=== PATIENT | male | born 1985 | race Hispanic/Latino ===

== ENCOUNTER 2023-10-09 09:10 | Emergency (ER) | payer BC, OTHER ==
[~2023-10-09] VITALS: Ht 177.8 cm; Wt 68.0 kg
[2023-10-09] MEDS ORDERED: SOLU-MEDROL 125MG VIAL IVP ONE (10:00)
[2023-10-09] MEDS ORDERED: 0.9%NACL 1000ML 1,000 ML IV ONE (10:00)
[2023-10-09] MEDS ORDERED: FAMOTIDINE 20MG VIAL IV ONE (10:00)
[2023-10-09] MEDS ORDERED: DiphenhydrAMINE HCL 50 MG/ML VIAL IV ONE (10:00)
[2023-10-09] MEDS ORDERED: KETOROLAC 15MG/ML VIAL (15MG/ML) IV ONE (10:00)
[2023-10-09] MEDS ORDERED: LIDOCAINE HCL 2% VISCOUS 15 ML UDCUP PO ONE (10:00)
[2023-10-09 10:16] LABS: BASOPHILS # (AUTO) 0.01 K/uL (0.00-0.20); BASOPHILS % (AUTO) 0.1 % (0.0-5.0); EOSINOPHILS # (AUTO) 0.06 K/uL (0.00-0.70); EOSINOPHILS % (AUTO) 0.6 % (0.0-8.0); HEMATOCRIT 36.2 % (42-54); IMMATURE GRANULOCYTE ABSOLUTE 0.06 K/uL (0-1); LYMPHOCYTES % (AUTO) 9.9 % (21.0-51.0); MEAN CORPUSCULAR HGB CONC 36.2 g/dL (32.0-36.0); MEAN CORPUSCULAR VOLUME 121.5 fL (79-99); MONOCYTES # (AUTO) 0.5 K/uL (0.1-1.0); MONOCYTES % (AUTO) 4.8 % (3.0-13.0); NEUTROPHILS # (AUTO) 8.8 K/uL (1.8-7.7); PLATELET COUNT (AUTO) 210 K/uL (130-400); RED BLOOD CELL COUNT(AUTO) 2.98 MIL/uL (4.50-6.20); RED CELL DISTRIBUTION WIDTH 11.4 % (11.0-15.5); WHITE BLOOD COUNT (AUTO) 10.4 K/uL (4.8-10.8)
[2023-10-09 10:41] LABS: CREATININE 0.8 mg/dL (0.5-1.5); POTASSIUM 3.5 mmol/L (3.5-5.1)
[2023-10-09 10:46] LABS: ALBUMIN 3.8 g/dL (3.5-5.0); BILIRUBIN,TOTAL 1.2 mg/dL (0.2-1.0); TOTAL PROTEIN, SERUM 7.5 g/dL (6.0-8.3)
[2023-10-09] MEDS ORDERED: IOHEXOL-350 75 ML VIAL IV ONE (11:14)
[2023-10-09 12:06] LABS: LYMPHOCYTES % (MANUAL) 11 % (22-44); MAN.DIFF COMMENT-IMPRESSION MANUAL DIFFERENTIAL; MONOCYTES % (MANUAL) 6 % (2-9); PLATELET MORPHOLOGY COMMENT ADEQUATE; SEGMENTED NEUTROPHILS % 83 % (40-70); TOTAL CELLS COUNTED 100
[2023-10-09] MEDS ORDERED: VALA10002 PO (12:47)
[2023-10-09] MEDS ORDERED: [UNRECOGNIZED DRUG - CODE] TP (12:47)
[2023-10-09] MEDS ORDERED: VALACYCLOVIR HCL 500 MG TABLET ONE (12:49)
[2023-10-09 12:51] VITALS: BP 120/84; PULSE 74; RESP 18; O2SAT 98
[2023-10-09] MEDS ORDERED: VALACYCLOVIR HCL 500 MG TABLET PO SCH (13:00)
== END 2023-10-09 12:51 | disposition home or self-care (01) ==
LOC: EDH 09:10
DX: K05.10 Chronic gingivitis, plaque induced (principal); K14.0 Glossitis; J02.9 Acute pharyngitis, unspecified
CPT/HCPCS: 99284; 96374; 70491; 96375; 96361; 80053; 85025; 87071; 87880; 87252; 36415; J1200; J3490; J7030; J2930; J1885; Q9967

== ENCOUNTER 2023-11-10 18:21 | Emergency (ER) | payer BC ==
[~2023-11-10] VITALS: Ht 177.8 cm; Wt 68.0 kg
[~2023-11-10 18:21] MED LIST: VALA10002 PO; [UNRECOGNIZED DRUG - CODE] TP
[2023-11-10 18:23] VITALS: BP 132/61; PULSE 114; RESP 20
[2023-11-10 18:45] LABS: HEMATOCRIT 35.9 % (42-54); MEAN CORPUSCULAR HEMOGLOBIN 43.5 pg (27.0-33.0); MEAN CORPUSCULAR HGB CONC 36.5 g/dL (32.0-36.0); MEAN CORPUSCULAR VOLUME 119.3 fL (79-99); PLATELET COUNT (AUTO) 213 K/uL (130-400); RED BLOOD CELL COUNT(AUTO) 3.01 MIL/uL (4.50-6.20); RED CELL DISTRIBUTION WIDTH 11.9 % (11.0-15.5); WHITE BLOOD COUNT (AUTO) 10.7 K/uL (4.8-10.8)
[2023-11-10 18:48] LABS: APPEARANCE,URINE CLEAR (CLEAR); BILIRUBIN,URINE NEGATIVE (NEGATIVE); COLOR,URINE YELLOW (YELLOW); GLUCOSE, URINE (UA) NEGATIVE (NEGATIVE); KETONES,URINE 20 mg/dL (NEGATIVE); LEUKOCYTE ESTERASE ,URINE 25 Leu/uL (NEGATIVE); NITRATE,URINE NEGATIVE (NEGATIVE); OCCULT BLOOD,URINE SMALL (NEGATIVE); PH,URINE 5.5 (5.0-8.0); PROTEIN,URINE 30 mg/dL (NEGATIVE); UROBILINOGEN,URINE 3 mg/dL (0.2-1.0)
[2023-11-10 18:51] LABS: ADD UA MICROSCOPIC YES
[2023-11-10 18:52] LABS: BACTERIA,URINE FEW /HPF (None Seen); MUCUS,URINE MANY LPF (None Seen); SQUAMOUS EPITHELIAL CELL,UR RARE /HPF (0-2)
[2023-11-10 18:55] LABS: CREATININE 0.9 mg/dL (0.5-1.5); POTASSIUM 3.3 mmol/L (3.5-5.1)
[2023-11-10 19:00] LABS: ALBUMIN 4.1 g/dL (3.5-5.0); BILIRUBIN,TOTAL 2.2 mg/dL (0.2-1.0); TOTAL PROTEIN, SERUM 7.9 g/dL (6.0-8.3)
== END 2023-11-10 20:59 | disposition left against medical advice (07) ==
LOC: EDH 18:21
DX: R11.2 Nausea with vomiting, unspecified (principal); R19.7 Diarrhea, unspecified; Z53.21 Procedure and treatment not carried out due to patient leaving prior to being seen by health care provider
CPT/HCPCS: 36415; 80053; 81001; 85027

== ENCOUNTER 2023-11-13 13:33 | Emergency (ER) | payer BC ==
[~2023-11-13] VITALS: Ht 175.3 cm; Wt 68.0 kg
[2023-11-13 14:52] LABS: BASOPHILS # (AUTO) 0.01 K/uL (0.00-0.20); BASOPHILS % (AUTO) 0.2 % (0.0-5.0); EOSINOPHILS # (AUTO) 0.21 K/uL (0.00-0.70); EOSINOPHILS % (AUTO) 5.1 % (0.0-8.0); HEMATOCRIT 37.1 % (42-54); IMMATURE GRANULOCYTE ABSOLUTE 0.01 K/uL (0-1); LYMPHOCYTES # (AUTO) 1.2 K/uL (1.0-4.8); LYMPHOCYTES % (AUTO) 28.7 % (21.0-51.0); MEAN CORPUSCULAR HEMOGLOBIN 42.8 pg (27.0-33.0); MEAN CORPUSCULAR HGB CONC 36.7 g/dL (32.0-36.0); MEAN CORPUSCULAR VOLUME 116.7 fL (79-99); MONOCYTES # (AUTO) 0.3 K/uL (0.1-1.0); MONOCYTES % (AUTO) 7.2 % (3.0-13.0); NEUTROPHILS # (AUTO) 2.4 K/uL (1.8-7.7); NEUTROPHILS % (AUTO) 58.6 % (40.0-77.0); PLATELET COUNT (AUTO) 215 K/uL (130-400); RED BLOOD CELL COUNT(AUTO) 3.18 MIL/uL (4.50-6.20); RED CELL DISTRIBUTION WIDTH 12.3 % (11.0-15.5); WHITE BLOOD COUNT (AUTO) 4.1 K/uL (4.8-10.8)
[2023-11-13] MEDS ORDERED: ONDANSETRON 4MG INJ IVP ONE (15:00)
[2023-11-13] MEDS ORDERED: PANTOPRAZOLE 40 MG/VIAL IVP ONE (15:00)
[2023-11-13] MEDS ORDERED: LACTATED RINGERS 1000ML 1,000 ML IV ONE (15:00)
[2023-11-13 15:57] LABS: INFLUENZA TYPE A Negative For Type A (NEGATIVE); INFLUENZA TYPE B Negative For Type B (NEGATIVE)
[2023-11-13 16:08] LABS: ALBUMIN 3.7 g/dL (3.5-5.0); BILIRUBIN,TOTAL 0.9 mg/dL (0.2-1.0); CREATININE 0.7 mg/dL (0.5-1.5); POTASSIUM 3.3 mmol/L (3.5-5.1); TOTAL PROTEIN, SERUM 7.5 g/dL (6.0-8.3)
[2023-11-13 16:26] LABS: APPEARANCE,URINE CLEAR (CLEAR); BILIRUBIN,URINE NEGATIVE (NEGATIVE); COLOR,URINE COLORLESS (YELLOW); GLUCOSE, URINE (UA) NEGATIVE (NEGATIVE); KETONES,URINE NEGATIVE (NEGATIVE); LEUKOCYTE ESTERASE ,URINE NEGATIVE Leu/uL (NEGATIVE); NITRATE,URINE NEGATIVE (NEGATIVE); OCCULT BLOOD,URINE NEGATIVE (NEGATIVE); PROTEIN,URINE NEGATIVE (NEGATIVE); UROBILINOGEN,URINE 0.2 mg/dL (0.2-1.0)
[2023-11-13 16:31] LABS: ADD UA MICROSCOPIC NO
[2023-11-13] MEDS ORDERED: KCL 20 MEQ ERTAB PO ONE (17:00)
[2023-11-13] MEDS ORDERED: MORPHINE 2 MG SYG IVP ONE (17:30)
[2023-11-13 18:07] VITALS: BP 128/84; PULSE 82; RESP 18; O2SAT 99
[2023-11-13] MEDS ORDERED: ONDA4TAB10 PO (18:12)
[2023-11-13] MEDS ORDERED: ONDANSETRON 4MG TABLET PO ONE (18:30)
== END 2023-11-13 18:25 | disposition home or self-care (01) ==
LOC: EDH 13:33
DX: K52.9 Noninfective gastroenteritis and colitis, unspecified (principal); E87.6 Hypokalemia; R11.2 Nausea with vomiting, unspecified; E86.0 Dehydration; R79.89 Other specified abnormal findings of blood chemistry
CPT/HCPCS: 99284; 96374; 96375; 96361; 82550; 80053; 83690; 85025; 87804 ×2; 81003; 36415; 93005; Q0162; J7120; J2270; J2405; C9113

== ENCOUNTER 2024-08-18 14:49 | Emergency (ER) | payer BC ==
[~2024-08-18] VITALS: Ht 175.3 cm; Wt 63.5 kg
[~2024-08-18 14:49] MED LIST changes: +ONDA-243 PO
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
[2024-08-18] MEDS: CLINDAMYCIN IVPB 600MG/50ML 50 ML IV SCH (15:27)
[2024-08-18] MEDS: ketOROlac 30MG VIAL (30MG/ML) IVP ONE (15:28)
[2024-08-18] MEDS: teTANUS/diphthERIA TOXOID [ADULT] 0.5 ML VIAL IM ONE (15:29)
[2024-08-18 15:37] LABS: BASOPHILS # (AUTO) 0.03 K/uL (0.00-0.20); BASOPHILS % (AUTO) 0.5 % (0.0-5.0); EOSINOPHILS # (AUTO) 0.14 K/uL (0.00-0.70); EOSINOPHILS % (AUTO) 2.4 % (0.0-8.0); HEMATOCRIT 33.9 % (42-54); IMMATURE GRANULOCYTE ABSOLUTE 0.02 K/uL (0-1); LYMPHOCYTES # (AUTO) 1.6 K/uL (1.0-4.8); LYMPHOCYTES % (AUTO) 26.9 % (21.0-51.0); MEAN CORPUSCULAR HEMOGLOBIN 38.5 pg (27.0-33.0); MEAN CORPUSCULAR HGB CONC 33.6 g/dL (32.0-36.0); MEAN CORPUSCULAR VOLUME 114.5 fL (79-99); MONOCYTES # (AUTO) 0.3 K/uL (0.1-1.0); MONOCYTES % (AUTO) 5.6 % (3.0-13.0); NEUTROPHILS # (AUTO) 3.7 K/uL (1.8-7.7); NEUTROPHILS % (AUTO) 64.3 % (40.0-77.0); PLATELET COUNT (AUTO) 241 K/uL (130-400); RED BLOOD CELL COUNT(AUTO) 2.96 MIL/uL (4.50-6.20); RED CELL DISTRIBUTION WIDTH 15.8 % (11.0-15.5); WHITE BLOOD COUNT (AUTO) 5.8 K/uL (4.8-10.8)
[2024-08-18 15:45] LABS: CREATININE 0.7 mg/dL (0.5-1.3); POTASSIUM 3.4 mmol/L (3.5-5.1)
[2024-08-18 15:50] LABS: ALBUMIN 3.6 g/dL (3.5-5.0); BILIRUBIN,TOTAL 0.8 mg/dL (0.2-1.0); TOTAL PROTEIN, SERUM 7.3 g/dL (6.0-8.3)
--- NOTE | 2024-08-18 16:21 | HMCIMG ---
HAND 3+VWS RT REASON: INJURY TECHNIQUE: 3 views were obtained. FINDINGS: There is no evidence of fracture or dislocation. There is no joint effusion. The soft tissues appear unremarkable. There is no evidence of a radiopaque foreign body. IMPRESSION: No acute findings.
[2024-08-18] MEDS ORDERED: MUPI15C TP (17:28)
[2024-08-18] MEDS ORDERED: CLIN-141 PO (17:28)
[2024-08-18 17:38] VITALS: BP 131/82; PULSE 64; RESP 18; TEMP 98.2; O2SAT 100
== END 2024-08-18 17:39 | disposition home or self-care (01) ==
LOC: EDH 14:49
DX: T23.201A Burn of second degree of right hand, unspecified site, initial encounter (principal); T31.0 Burns involving less than 10% of body surface; L03.113 Cellulitis of right upper limb; Z79.624 Long term (current) use of inhibitors of nucleotide synthesis; X08.8XXA Exposure to other specified smoke, fire and flames, initial encounter; Y93.89 Activity, other specified; Y92.89 Other specified places as the place of occurrence of the external cause; Y99.8 Other external cause status
CPT/HCPCS: 99284; 96365; 96375; 80053; 85025; 85651; 86140; 36415; 90714; 73130; 90471; J1885; J3490

== ENCOUNTER 2025-03-18 14:14 | Emergency (ER) | payer SELFPAY ==
[~2025-03-18] VITALS: Ht 175.3 cm; Wt 72.6 kg
[~2025-03-18 14:14] MED LIST changes: +CLIN-141 PO; +MUPI15C TP
[2025-03-18 14:39] LABS: BASOPHILS # (AUTO) 0.03 K/uL (0.00-0.20); BASOPHILS % (AUTO) 0.5 % (0.0-5.0); EOSINOPHILS # (AUTO) 0.22 K/uL (0.00-0.70); EOSINOPHILS % (AUTO) 3.6 % (0.0-8.0); HEMATOCRIT 45.1 % (42-54); IMMATURE GRANULOCYTE ABSOLUTE 0.02 K/uL (0-1); LYMPHOCYTES # (AUTO) 1.8 K/uL (1.0-4.8); LYMPHOCYTES % (AUTO) 29.5 % (21.0-51.0); MEAN CORPUSCULAR HEMOGLOBIN 33.6 pg (27.0-33.0); MEAN CORPUSCULAR HGB CONC 33.7 g/dL (32.0-36.0); MEAN CORPUSCULAR VOLUME 99.8 fL (79-99); MONOCYTES # (AUTO) 1.4 K/uL (0.1-1.0); MONOCYTES % (AUTO) 23.5 % (3.0-13.0); NEUTROPHILS # (AUTO) 2.6 K/uL (1.8-7.7); NEUTROPHILS % (AUTO) 42.6 % (40.0-77.0); PLATELET COUNT (AUTO) 216 K/uL (130-400); RED BLOOD CELL COUNT(AUTO) 4.52 MIL/uL (4.50-6.20); RED CELL DISTRIBUTION WIDTH 12.2 % (11.0-15.5)
[2025-03-18 14:46] LABS: POTASSIUM 3.7 mmol/L (3.5-5.1)
[2025-03-18 15:04] LABS: APPEARANCE,URINE CLEAR (CLEAR); BILIRUBIN,URINE NEGATIVE (NEGATIVE); COLOR,URINE LIGHT-YELLOW (YELLOW); GLUCOSE, URINE (UA) NEGATIVE (NEGATIVE); KETONES,URINE NEGATIVE (NEGATIVE); LEUKOCYTE ESTERASE ,URINE NEGATIVE Leu/uL (NEGATIVE); NITRATE,URINE NEGATIVE (NEGATIVE); PH,URINE 6.5 (5.0-8.0); PROTEIN,URINE NEGATIVE (NEGATIVE)
[2025-03-18] MEDS: 0.9%NACL 1000ML 1,000 ML IV ONE (15:15)
[2025-03-18 15:43] LABS: MUCUS,URINE RARE LPF (None Seen); WBC,URINE 0-1 /HPF (0-1)
[2025-03-18 15:48] LABS: MAGNESIUM 1.8 mg/dL (1.80-2.40)
[2025-03-18 15:54] LABS: AMPHET/METH SCREEN,URINE NEGATIVE (NEGATIVE); BARBITURATE SCREEN, URINE NEGATIVE (NEGATIVE); BENZODIAZEPINES SCREEN,URINE NEGATIVE (NEGATIVE); CANNABINOID SCREEN,URINE NEGATIVE (NEGATIVE); COCAINE SCREEN,URINE POSITIVE (NEGATIVE); OPIATE SCREEN,URINE NEGATIVE (NEGATIVE); PHENCYCLIDINE SCREEN,URINE NEGATIVE (NEGATIVE)
[2025-03-18 16:45] VITALS: BP 140/88; PULSE 80; RESP 16; TEMP 99.3; O2SAT 98
--- NOTE | 2025-03-18 17:03 | ERN ---
General Chief Complaint: Numbness Stated Complaint: TINGLING ON BILATERAL UPPER AND LOWER EXTREMITIES Time Seen by MD: 14:17 Time Seen by Midlevel: 14:17 Source: patient History of Present Illness Allergies: Coded Allergies: No Known Allergies (Unverified Allergy, Unknown, 10/09/23) Home Meds Active Scripts Mupirocin Calcium (Bactroban 2% Cream) 2 % Crm, 1 APPL TP TID, #15 APPL Prov:VARSHA CHAPMAN 08/18/24 Clindamycin HCl (Clindamycin HCl) 300 Mg Capsule, 300 MG PO TID, #7 CAP Prov:VARSHA CHAPMAN 08/18/24 Ondansetron (Ondansetron Odt) 4 Mg Tab.rapdis, 4 MG PO TID PRN for NAUSEA, #30 TAB 0 Refills Prov:MECCA JESUS MD 11/13/23 Lidocaine HCl (Xylocaine HCl 2% Jelly Pf) 2 % Jel, 1 APPL TP TIDP PRN for PAIN, #1 TUBE Prov:ARTURO MATIAS [facility] 10/09/23 Valacyclovir HCl (Valtrex) 1,000 Mg Tablet, 1000 MG PO BID for 7 Days, #14 TAB 0 Refills Prov:ARTURO MATIAS [facility] 10/09/23 Past Medical History Past Medical History: No Pertinent History Past Surgical History: Other Surgical History Other: ARM Social History Social History: ETOH, Lives with family Results Laboratory and Microbiology Lab and Micro Result Laboratory Tests Test 03/18/25 14:30 03/18/25 14:35 White Blood Count 6.0 K/uL (4.8-10.8) Red Blood Count 4.52 MIL/uL (4.50-6.20) Hemoglobin 15.2 g/dL (14.0-18.0) Hematocrit 45.1 % (42-54) Mean Corpuscular Volume 99.8 fL (79-99) H Mean Corpuscular Hemoglobin 33.6 pg (27.0-33.0) H Mean Corpuscular Hemoglobin Concent 33.7 g/dL (32.0-36.0) Red Cell Distribution Width 12.2 % (11.0-15.5) Platelet Count 216 K/uL (130-400) Mean Platelet Volume 10.6 fL (7.5-10.5) H Immature Granulocyte % (Auto) 0.3 % (0-1) Neutrophils (%) (Auto) 42.6 % (40.0-77.0) Lymphocytes (%) (Auto) 29.5 % (21.0-51.0) Monocytes (%) (Auto) 23.5 % (3.0-13.0) H Eosinophils (%) (Auto) 3.6 % (0.0-8.0) Basophils (%) (Auto) 0.5 % (0.0-5.0) Neutrophils # (Auto) 2.6 K/uL (1.8-7.7) Lymphocytes # (Auto) 1.8 K/uL (1.0-4.8) Monocytes # (Auto) 1.4 K/uL (0.1-1.0) H Eosinophils # (Auto) 0.22 K/uL (0.00-0.70) Basophils # (Auto) 0.03 K/uL (0.00-0.20) Absolute Immature Granulocyte (auto 0.02 K/uL (0-1) Nucleated Red Blood Cells 0.0 % (0.0-0.19) White Cell Morphology Comment See comments Sodium Level 139 mmol/L (136-145) Potassium Level 3.7 mmol/L (3.5-5.1) Chloride Level 102 mmol/L (101-111) Carbon Dioxide Level 33 mmol/L (21-32) H Blood Urea Nitrogen 10 mg/dL (7-18) Creatinine 1.0 mg/dL (0.5-1.3) Glomerular Filtration Rate Calc 97 mL/min (>90) Random Glucose 106 mg/dL (70-105) H Total Calcium 8.6 mg/dL (8.5-10.1) Urine Color LIGHT-YELLOW (YELLOW) Urine Appearance CLEAR (CLEAR) Urine pH 6.5 (5.0-8.0) Urine Specific [place] 1.020 (1.001-1.031) Urine Protein NEGATIVE mg/dL (NEGATIVE) Urine Glucose (UA) NEGATIVE mg/dL (NEGATIVE) Urine Ketones NEGATIVE mg/dL (NEGATIVE) Urine Occult Blood +- (TRACE) (NEGATIVE) H Urine Nitrate NEGATIVE (NEGATIVE) Urine Bilirubin NEGATIVE mg/dL (NEGATIVE) Urine Urobilinogen 2.0 mg/dL (0.2-1.0) H Urine Leukocyte Esterase NEGATIVE Karen/uL Urine RBC 2-5 /HPF (0-1) H Urine WBC 0-1 /HPF (0-1) Urine Bacteria None /HPF (None Seen) Magnesium Level 1.80 mg/dL (1.80-2.40) Total Creatine Kinase 70 U/L (21-232) # Urine Opiates Screen NEGATIVE (NEGATIVE) Urine Barbiturates Screen NEGATIVE (NEGATIVE) Urine Phencyclidine Screen NEGATIVE (NEGATIVE) Urine Amphetamines Screen NEGATIVE (NEGATIVE) Urine Benzodiazepines Screen NEGATIVE (NEGATIVE) Urine Cocaine Screen POSITIVE (NEGATIVE) H Urine Marijuana (THC) Screen NEGATIVE (NEGATIVE) ED Course Orders Procedure Category Date Status Time Cbc With Differential LAB 03/18/25 Complete 14:23 Basic Metabolic Panel LAB 03/18/25 Complete 14:23 Urinalysis LAB 03/18/25 Complete W/Microscopic 14:23 Drug Screen Urine LAB 03/18/25 Complete 15:03 Creatine Kinase, Total LAB 03/18/25 Complete 15:03 Magnesium LAB 03/18/25 Complete 15:03 0.9%Nacl 1000ml (Ns PHA 03/18/25 Complete 1000ml) 15:30 Current Medications Medications (Trade) Dose Ordered Sig/Lola Route PRN Reason Start Time Stop Time Status Last Admin Dose Admin Sodium Chloride 1,000 ml @ 0 mls/hr ONCE ONCE IV 03/18/25 15:30 03/18/25 15:31 DC 03/18/25 15:15 Vital Signs Date Time Temp Pulse Resp B/P (MAP) Pulse Ox O2 Delivery O2 Flow Rate FiO2 03/18/25 16:45 99.3 80 16 140/88 98 Room Air* 0 21 03/18/25 14:36 99.3 82 16 130/95 98 Room Air* 0 21 03/18/25 14:16 99.3 82 16 130/95 99 DX & DISP Disposition: Discharge Departure Impression: Primary Impression: Cocaine use Condition: Stable Additional Instructions: Discharge home. Rest. Follow up with primary care in 24 hours. Return to the ER for any acute changes or worsening symptoms. If any medications were prescribed take as directed. Okay to continue home medications unless otherwise discussed during your visit in the emergency room today. Patient was also advised to follow-up with primary care physician in 1 to 2 days for continued monitoring. Referrals: SELF,REFERRAL (PCP) I performed the substantive portion of the visit. I have reviewed and personally made and approve the management plan that is documented in the notes by myself or the HARINDER. I acknowledge full responsibility for the patient's management plan. REY JOHN Mar 18, 2025 17:03
== END 2025-03-18 17:14 | disposition home or self-care (01) ==
LOC: EDH 14:14
DX: F14.90 Cocaine use, unspecified, uncomplicated (principal); Z79.624 Long term (current) use of inhibitors of nucleotide synthesis; Z79.899 Other long term (current) drug therapy
CPT/HCPCS: 36415; 80048; 80305; 81001; 82550; 83735; 85025; 99283